=== PATIENT | female | born 1995 | race Caucasian/White ===

== ENCOUNTER 2022-02-20 00:41 | Emergency (ER) | payer BC ==
[~2022-02-20] VITALS: Ht 162.6 cm; Wt 59.0 kg
--- NOTE | 2022-02-20 01:05 | NUR ---
BIB PARTNER FOR C/O ATRUAMTIC L KNEE PAIN AT 2315. PT HAS HX OF PATELLAR DISLOCATIONS FROM PREVIOUS INJURY. PT STATES SHE MAY HAVE STOOD ON IT INCORRECTLY CAUSING IT TO DISLOCATE. PT UNABLE TO BARE WEIGHT ASSISTED VIA WHEELCHAIR TO ER BED 3. CHANGED INTO GOWN AND NO GROSS DEFORMITIES NOTED ON ASSESSMENT. ALL V/S WNL.
--- NOTE | 2022-02-20 01:07 | NUR ---
DR. GLEZ AT PT'S BEDSIDE
--- NOTE | 2022-02-20 01:07 | NUR ---
Rosaline garcia in [facility] - 02/20/22 at 0107 by JOSE MD AT BEDSIDE
[2022-02-20] MEDS ORDERED: KETOROLAC TROMETHAMINE INJ 60 MG/2 ML VIAL IM ONE ×2 (01:12→01:30)
--- NOTE | 2022-02-20 01:13 | NUR ---
THREAD PULLING MACHINE ATTENDANT AT PT'S BEDSIDE
[2022-02-20] MEDS ORDERED: KETO10TA2 PO (02:04)
--- NOTE | 2022-02-20 02:14 | NUR ---
Patient discharged to home in stable condition. Written and verbal after care instructions given. Patient verbalizes understanding of instruction.
[2022-02-20 02:15] VITALS: BP 123/80
== END 2022-02-20 02:15 | disposition home or self-care (01) ==
LOC: ER 01:09
DX: M25.562 Pain in left knee (principal)
CPT/HCPCS: 73564; 96372; 99283; J1885